=== PATIENT | male | born 1970 | race Caucasian/White ===

== ENCOUNTER 2018-11-23 09:40 | Outpatient (CLI) | payer OTHER ==
--- NOTE | 2018-11-23 16:26 | ULT ---
ULTRASOUND ARTERIAL DOPPLER BILATERAL LOWER EXTREMITY: 11/23/18 HISTORY: Synovitis and tenosynovitis. COMPARISON: None. TECHNIQUE: Real time nicole scale color doppler and spectral analysis of the bilateral lower extremity arterial sy stem is performed. There is triphasic waveforms throughout the lower extremities bilaterally. No focal elevation of peak systolic velocity suggests a hemodynamically significant stenosis. Adjacent soft tissues are unremarkable. IMPRESSION: No hemodynamically significant stenosis. POS: T[facility]
== END 2018-11-23 09:41 | disposition home or self-care (01) ==
LOC: MRI 09:40 → ULT 09:41
PROVIDERS: ATTEND Internal Medicine Infectious Disease
DX: M65.872 Other synovitis and tenosynovitis, left ankle and foot (principal)
CPT/HCPCS: 93923

== ENCOUNTER 2018-11-30 10:04 | Outpatient (CLI) | payer OTHER ==
--- NOTE | 2018-11-30 14:14 | MRI ---
MRI LEFT FOREFOOT WITH AND WITHOUT CONTRAST: HISTORY: Synovitis. COMPARISON: None. 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 No stress edema. No fracture. No malalignment. Mild increased fluid signal within the medial hallux sesamoid with loss of cartilage in the medial me tatarsal sesamoid joint and cortical remodeling. SOFT TISSUES: No evidence for significant synovitis. Lisfranc interval is maintained. The Lisfranc proper is normal. MUSCLES: Muscle signal, bulk, and enhancement are normal. TENDONS: No significant tenosynovitis. 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 No evidence for synovitis. POS: TPC
--- NOTE | 2018-11-30 14:15 | MRI ---
MRI LEFT ANKLE WITH AND WITHOUT CONTRAST: HISTORY: M65.9. Pain. Multiple prior Achilles tendon surgeries. COMPARISON: Ankle radiograph 01/02/2018. FINDINGS: LIGAMENTS: Chronic thickening and scar of the AITFL. PITFL is intact. Chronic tear rupture of the ATFL. TFL h as an old tear. Superficial and deep deltoid ligaments are intact. TENDONS: There is marked thickening of the Achilles tendon with evidence of prior surgical repair. Repair is intact. No re-tear. Normal insertion appearance upon the posterior process of the calcaneus. No si gnificant interstitial delamination. No abnormal enhancing mass. Extensor tendons are intact. Flexor tendons are intact. There is mild concavity of the retromalleolar groove of the peroneal tendons. BONES: There is narrowing of the medial ankle mortise and medial shoulder of the ankle mortise with cartilag e loss. Mild narrowing of the posterior and middle subtalar joints. Low-grade subcortical edema of the tibial plafond with cartilage delamination. There is some low-grade edema of the posterior subta lar joint with underlying cartilage delamination. Mild thickening and central brand of the plantar fascia without overlying or underlying edema. Tarsa l sinus is intact. IMPRESSION: 1. Satisfactory postoperative appearance to Achilles tendon repair without evidence of a re-tear. 2. Multifocal full-thickness cartilage fissures of the tibial plafond with marrow edema as well as chondral loss of the posterior subtalar joint with reactive marrow edema of the talus. 3. Evidence of old ligamentous injury involving the AITFL and anterior talofibular ligament as well as the CFL. 4. No evidence of osteomyelitis. POS: TPC
== END 2018-11-30 10:05 | disposition home or self-care (01) ==
LOC: MRI 10:04
PROVIDERS: ATTEND Internal Medicine Infectious Disease
DX: M65.9 Synovitis and tenosynovitis, unspecified (principal); M19.072 Primary osteoarthritis, left ankle and foot; Z98.890 Other specified postprocedural states